=== PATIENT | male | born 1965 ===

== ENCOUNTER 2021-10-13 08:19 | Outpatient (CLI) | payer MEDICAID, SELFPAY ==
--- NOTE | 2021-10-13 08:15 | RT.EKG_ITS ---
APPROVED REPORT Exam: Resting ECG Reason for Exam: CP Patient Location: O HR:79 bpm ECG Measurements Heart Rate 79 AXIS MI 147 P 6 QRSd 78 QRS 25 QT 359 T 35 QTc 412 Conclusion Pacemaker spikes or artifacts...timing non-diagnostic Sinus rhythm...normal P axis, V-rate 50- 99 Normal Electrocardiogram
== END 2021-10-13 08:20 | disposition home or self-care (01) ==
LOC: DI.CARD 08:20
PROVIDERS: Visit Provider Internal Medicine Cardiovascular Disease
DX: R07.9 Chest pain, unspecified (principal)
CPT/HCPCS: 93010